=== PATIENT | male | born 1950 | race Caucasian/White ===

== ENCOUNTER 2017-04-30 12:47 | Emergency (ER) | payer OTHER ==
[~2017-04-30] VITALS: Ht 177.8 cm; Wt 97.1 kg
--- NOTE | 2017-04-30 12:58 | ED MVC/FALL/TRAUMA COMPLAINT ---
History of Present Illness General Chief Complaint: Fall Stated Complaint: FELL OFF 10 FT LATTER HIT HEAD -LOC BACK PAIN Vital Signs & Intake/Output Vital Signs & Intake/Output Vital Signs Date Time Temp Pulse Resp B/P B/P Pulse O2 O2 Flow FiO2 Mean Ox Delivery Rate 04/30 1252 97.7 69 20 175/84 99 Room Air Allergies Coded Allergies: No Known Allergies (04/30/17) Triage Note: PT TO ED S/P FALL OFF 10 FOOT LADDER. FELL ONTO HIS BUTTOCKS, "MY HEAD WHIPPED BACK". THINKS HE HIT HIS HEAD ON "A ROOT". DENIES LOC. Past History Travel History Traveled to [place] past 21 day No Medical History Cardiovascular: hypertension Psychosocial History Who do you live with Spouse Services at Home None What is your primary language Togolese Tobacco Use: Never used ETOH Use: denies use Illicit Drug Use: denies illicit drug use Departure Departure Condition: Stable Referrals: BALBIR URBAN,WISAM Phillip (PCP/Family) Departure Forms: Customer Survey General Discharge Information
--- NOTE | 2017-04-30 13:05 | ED MVC/FALL/TRAUMA COMPLAINT ---
History of Present Illness General Chief Complaint: Fall Stated Complaint: FELL OFF 10 FT LATTER HIT HEAD -LOC BACK PAIN Source: patient Exam Limitations: no limitations Vital Signs & Intake/Output Vital Signs & Intake/Output Vital Signs Date Time Temp Pulse Resp B/P B/P Pulse O2 O2 Flow FiO2 Mean Ox Delivery Rate 04/30 1420 71 18 149/75 98 Room Air 04/30 1325 99 Room Air 04/30 1252 97.7 69 20 175/84 99 Room Air Allergies Coded Allergies: No Known Allergies (04/30/17) Reconcile Medications Cyclobenzaprine HCl 10 MG TABLET 1 TAB PO QPM PRN MUSCLE RELAXOR Meloxicam 15 MG TABLET 1 TAB PO DAILY PRN PAIN Oxycodone HCl/Acetaminophen (Percocet 5-325 MG Tablet) 5 MG-325 MG TABLET 1-2 TAB PO Q4-6 PRN PAIN Triage Note: PT TO ED S/P FALL OFF 10 FOOT LADDER. FELL ONTO HIS BUTTOCKS, "MY HEAD WHIPPED BACK". THINKS HE HIT HIS HEAD ON "A ROOT". DENIES LOC. Triage Nurses Notes Reviewed? yes Onset: Abrupt Duration: constant Timing: single episode today Severity: severe Severity Numbers: 10 HPI: Patient is a 66-year-old male who presents emergency room and which 30 minutes prior to arrival patient was on a ladder approximately 10 feet in the air repairing a gazebo roof were subsequently he fell off the ladder striking the right buttock region to the ground then falling backwards on his back and striking the back of his head resulting in a laceration and bleeding was controlled prior to arrival. No loss of consciousness had occurred. Patient states that he is complaining of headache and entire spinous pain. Denies any extremity paresthesias or weakness bowel or bladder incontinence or saddle paresthesia. Patient has been acting at baseline which the is present who witnessed the event No alcohol ingestion today No medications given prior to arrival. Denies any chest pain shortness of breath abdominal pain vomiting blurred vision or extremity pain Past History Travel History Traveled to [place] past 21 day No Medical History Any Pertinent Medical History? see below for history Cardiovascular: hypertension Surgical History Surgical History: non-contributory Psychosocial History Who do you live with Spouse Services at Home None What is your primary language Bulgarian Tobacco Use: Never used ETOH Use: denies use Illicit Drug Use: denies illicit drug use Family History Hx Contributory? No Review of Systems Review of Systems Constitutional: Reports: no symptoms. Eyes: Reports: no symptoms. Ears, Nose, Throat, Mouth: Reports: no symptoms. Respiratory: Reports: no symptoms. Cardiovascular: Reports: no symptoms. Gastrointestinal/Abdominal: Reports: no symptoms. Genitourinary: Reports: no symptoms. Musculoskeletal: Reports: see HPI, back pain. Skin: Reports: no symptoms. Neurological/Psychological: Reports: see HPI, headache. All Other Systems: Reviewed and Negative Physical Exam Physical Exam General Appearance: mild distress Head: evidence of injury Extremities: normal range of motion Comments: HEENT: Normal EENT exam, extraocular motion intact, no nystagmus. Pupils equally round and reactive to light and accommodation. Nose is atraumatic. External auditory canal and Tympanic membranes clear. Pharynx normal. No swelling or edema. Neck: Generalized point tenderness noted, decreased active range of motion noted Back: Generalized point tenderness noted, decreased active range of motion noted Pelvic: Noted gluteal point tenderness to the right side Cardiovascular: Regular rate and rhythms no murmurs rubs or gallops, normal JVP Respiratory: Chest nontender. No respiratory distress.breath sounds clear to auscultation bilaterally Abdomen: Soft, nontender nondistended, no appreciable organomegaly. Normal bowel sounds. No ascites Extremity: No edema, no calf tenderness to palpation, normal and equal pulses. Bilateral upper extremity and lower extremity myotomes dermatomes DTRs intact Neuro: Alert oriented x3, motor sensory normal, cranial nerves II through XII grossly intact. Skin: No appreciable rash on exposed skin, skin is warm and dry. Psych: Mood and affect is normal, memory and judgment is normal. Diagram Head: 1) 1 CM MIDLY GAPING LACERATION NO ACTIVE BLEEDING Core Measures ACS in differential dx? No Severe Sepsis Present: No Septic Shock Present: No Progress Differential Diagnosis: abd injury, C/T/L spine injury, ext injury, ICH, pelvis injury, pnemothorax, spinal cord injury Plan of Care: Orders Procedure Date/time Status CT THOR SPINE WO IV CONTRAST 04/[address] PELVIS WO IV CONTRAST 04/[address] LUMB SPINE WO IV CONTRAST 04/[address] HEAD WO IV CONTRAST 04/[address] CERV SPINE WO IV CONTRAST 04/30 1306 Active Patient currently is standing as most comfortable position HOWEVER IS in mild distress. Patient will be lo scanned. PATIENT HAS NO NEUROVASCULAR DEFICIT ON EXAM CERVICAL COLLAR WAS PLACED PT TOLERATED STAPLE PLACEMENT TETANUS WAS UPDATED. PT WAS GIVEN MORPHINE AND HAD RELIEF OF PAIN I reviewed CT scan images with patient and family for concerns of an L1 compression fracture Cervical collar was removed after cervical spine image was unremarkable discussed disposition and plan with dr cheney Patient was strongly advised to follow up with orthopedic doctor. Patient had normal steady gait on discharge. Upon discharge patient looks well no apparent distress and will comply with discharge instructions and had no questions. (RIKKI VILLASENOR,ENID) Diagnostic Imaging: Viewed by Me: CT Scan. Radiology Impression: acute abnormality, fracture Comments: PATIENT: ROLAND CHAVEZ PRESENT AGE: 66 PATIENT ACCOUNT NO: [id number] : 51 LOCATION: [facility] ORDERING PHYSICIAN: ENID VILLASENOR SERVICE DATE: 04/30/17 EXAM TYPE: CAT - CT PELVIS WO IV CONTRAST EXAMINATION: CT PELVIS WITHOUT CONTRAST CLINICAL INFORMATION: Fall off 10 foot gazebo. Left ischial tuberosity and pelvic pain COMPARISON: None TECHNIQUE: Helical scanning was performed with submillimeter collimation through the pelvis. Sagittal and coronal multiplanar 2-D reconstructions were obtained. DLP: 1016 mGy-cm FINDINGS: PELVIS: The bladder is moderately distended. No evidence of pelvic mass or lymphadenopathy. No free fluid or thickened bowel loops are seen. The appendix is normal. A small fat-containing umbilical hernia is noted. OSSEOUS STRUCTURES: The sacroiliac joints are fused. No fracture or dislocation is seen. There are mild degenerative changes at the bilateral hips. IMPRESSION: No acute pelvic fracture is seen. The pelvic ring is maintained. No free fluid. Fused bilateral sacroiliac joints, correlate with history of spondyloarthropathy. Mild degenerative changes are seen in the bilateral hips with osteophyte formation. DICTATED BY: TORRES CASEY MD DATE/TIME DICTATED:04/30/17 PATIENT: ROLAND CHAVEZ PRESENT AGE: 66 PATIENT ACCOUNT NO: [id number] : 51 LOCATION: ER ORDERING PHYSICIAN: ENID VILLASENOR SERVICE DATE: 04/30/17 EXAM TYPE: CAT - CT LUMB SPINE WO IV CONTRAST; CT THOR SPINE WO IV CONTRAST EXAMINATION: THORACIC AND LUMBAR SPINE CT WITHOUT CONTRAST CLINICAL INFORMATION: 66-year-old man with fall from 10 foot gazebo. Pain. COMPARISON: None TECHNIQUE: Helical CT images were obtained through the thoracic and lumbar spine. Axial reconstructions were reviewed along with sagittal and coronal MPRs. DLP: 1381 mGy-cm FINDINGS: Thoracic spine: There is no convincing evidence of acute fracture. Vertebral bodies remain normal in height. Alignment is anatomic. Mild degenerative endplate remodeling is seen at multiple levels and is perhaps most conspicuous at T7-T8 and T8-T9. Small degenerative anterior marginal osteophytes are seen in the upper thoracic spine. There is mild loss of normal intervertebral disc height. There is mild to moderate narrowing of the neural foramina from T7-T8 through T10-T11. At T11-T12, there is bulky mineralization of the ligamentum flavum which in conjunction with facet arthrosis and a disc bulge leads to at least moderate canal stenosis. Lumbar spine: There is a superior endplate compression deformity which leads to about 10% central loss of height. Buckling of the anterior cortex and subtle lucency paralleling the superior endplate suggest that this fracture is acute. Remaining vertebral bodies are normal in height. Alignment is anatomic. Intervertebral disc heights are relatively well-preserved. Facet arthrosis contributes to mild to moderate narrowing of the neural foramina at L4-L5 and L5-S1. IMPRESSION: 1. Probable mild acute superior endplate compression fracture of L1 with about 10% central loss of height. 2. Moderate multilevel thoracic spondylosis. Degenerative changes at T11-T12 lead to at least moderate canal stenosis. DICTATED BY: TYSON MUSTAFA MD DATE/TIME DICTATED:04/30/171356 ALUMINUM POURER:DARIELA PATIENT: ORLAND CHAVEZ PRESENT AGE: 66 PATIENT ACCOUNT NO: [id number] : 51 LOCATION: [facility] ORDERING PHYSICIAN: ENID VILLASENOR SERVICE DATE: 04/30/176802 EXAM TYPE: CAT - CT PELVIS WO IV CONTRAST EXAMINATION: CT PELVIS WITHOUT CONTRAST CLINICAL INFORMATION: Fall off 10 foot gazebo. Left ischial tuberosity and pelvic pain COMPARISON: None TECHNIQUE: Helical scanning was performed with submillimeter collimation through the pelvis. Sagittal and coronal multiplanar 2-D reconstructions were obtained. DLP: 1016 mGy-cm FINDINGS: PELVIS: The bladder is moderately distended. No evidence of pelvic mass or lymphadenopathy. No free fluid or thickened bowel loops are seen. The appendix is normal. A small fat-containing umbilical hernia is noted. OSSEOUS STRUCTURES: The sacroiliac joints are fused. No fracture or dislocation is seen. There are mild degenerative changes at the bilateral hips. IMPRESSION: No acute pelvic fracture is seen. The pelvic ring is maintained. No free fluid. Fused bilateral sacroiliac joints, correlate with history of spondyloarthropathy. Mild degenerative changes are seen in the bilateral hips with osteophyte formation. DICTATED BY: TORRES CASEY MD DATE/TIME DICTATED:04/30/171355 ALUMINUM POURER:MONTALVO DATE/TIME TRANSCRIBED:04/30/171355 PATIENT: ROLAND CHAVEZ PRESENT AGE: 66 PATIENT ACCOUNT NO: [id number] : 51 LOCATION: [facility] ORDERING PHYSICIAN: ENID VILLASENOR SERVICE DATE: 04/30/17 EXAM TYPE: CAT - CT CERV SPINE WO IV CONTRAST; CT HEAD WO IV CONTRAST EXAMINATION: CT HEAD WITHOUT CONTRAST CT CERVICAL SPINE WITHOUT CONTRAST CLINICAL INFORMATION: Fall off 10 foot gazebo. COMPARISON: None. TECHNIQUE: Imaging was performed from the skull base to vertex without intravenous administration of contrast. In addition, helical noncontrast CT imaging was acquired through the cervical spine and source images were reviewed along with axial reconstructions and sagittal and coronal MPRs. Total exam dose-length product 1014 mGy-cm FINDINGS: HEAD: No intracranial mass, hemorrhage, or midline shift is visualized. The ventricles and sulci are age-appropriate. No extra-axial collections are identified. The paranasal sinuses and mastoid air cells are well aerated. CERVICAL SPINE: There is no evidence of acute cervical spine fracture. Vertebral bodies remain normal in height and alignment is anatomic. Disc space height is maintained. Mild endplate osteophytes are seen in the mid to lower cervical spine. No pre- or paravertebral soft tissue abnormality is identified. Limited assessment of the lung apices is unremarkable. IMPRESSION: 1. No acute intracranial pathology. 2. No CT evidence of acute cervical spine fracture or traumatic subluxation DICTATED BY: TORRES CASEY MD DATE/TIME DICTATED:04/30/171348 ALUMINUM POURER:MONTALVO DATE/TIME TRANSCRIBED:04/30/171348 CONFIDENTIAL, DO NOT COPY WITHOUT APPROPRIATE AUTHORIZATION. <Electronically signed in Other Vendor System> SIGNED BY: TORRES CASEY MD 04/30/178 Departure Departure Disposition: HOME OR SELF CARE Condition: Stable Clinical Impression Primary Impression: Compression fracture of L1 lumbar vertebra Secondary Impressions: Cervical strain, Contusion, Fall, Scalp laceration Referrals: ASHLEY URBAN,NEHEMIAS MCGREGOR MD,WISAM Phillip (PCP/Family) Additional Instructions: As discussed begin icing the area directly 20 minutes every 2 hours. Begin the prescription meloxicam for pain and inflammation begin the prescription of Percocet for breakthrough pain and a prescription of cyclobenzaprine for muscle relaxation. If symptoms worsen return to emergency room. Do not lift heavy objects or exert yourself as this may worsen your symptoms. On Tuesday follow-up with orthopedic Nehemias Farley MD for further evaluation treatment. Prescriptions are waiting at [place] [facility] Begin to apply bacitracin to the area once a day of the scalp wound for the following 4 days. If you note signs of infection redness, pain, swelling, discharge return to emergency room. Return to emergency room in 7 days for staple removal Departure Forms: Customer Survey General Discharge Information Prescriptions: Current Visit Scripts Oxycodone HCl/Acetaminophen (Percocet 5-325 MG Tablet) 1-2 TAB PO Q4-6 PRN PAIN #20 TAB Cyclobenzaprine HCl 1 TAB PO QPM PRN MUSCLE RELAXOR #10 TAB Meloxicam 1 TAB PO DAILY PRN PAIN #15 TAB Procedures Laceration/Wound Repair Laceration/Wound Repair: Wound Location: head Wound's Depth, Shape: linear, superficial Wound Length (cm): 1 Wound Explored: clean, no foreign body removed, irrigated extensively Irrigated w/ Saline (ccs): 300 Betadine Prep? Yes Suture Size/Type: joe Number of Sutures: 2 Progress: MARGINS WERE REVISED WITH STAPLE PLACEMENT BACITRACIN WAS APPLIED
--- NOTE | 2017-04-30 13:58 | CT SCAN REPORT ---
EXAMINATION: CT HEAD WITHOUT CONTRAST CT CERVICAL SPINE WITHOUT CONTRAST CLINICAL INFORMATION: Fall off 10 foot gazebo. COMPARISON: None. TECHNIQUE: Imaging was performed from the skull base to vertex without intravenous administration of contrast. In addition, helical noncontrast CT imaging was acquired through the cervical spine and source images were reviewed along with axial reconstructions and sagittal and coronal MPRs. Total exam dose-length product 1014 mGy-cm FINDINGS: HEAD: No intracranial mass, hemorrhage, or midline shift is visualized. The ventricles and sulci are age-appropriate. No extra-axial collections are identified. The paranasal sinuses and mastoid air cells are well aerated. CERVICAL SPINE: There is no evidence of acute cervical spine fracture. Vertebral bodies remain normal in height and alignment is anatomic. Disc space height is maintained. Mild endplate osteophytes are seen in the mid to lower cervical spine. No pre- or paravertebral soft tissue abnormality is identified. Limited assessment of the lung apices is unremarkable. IMPRESSION: 1. No acute intracranial pathology. 2. No CT evidence of acute cervical spine fracture or traumatic subluxation
--- NOTE | 2017-04-30 14:04 | CT SCAN REPORT ---
EXAMINATION: CT PELVIS WITHOUT CONTRAST CLINICAL INFORMATION: Fall off 10 foot gazebo. Left ischial tuberosity and pelvic pain COMPARISON: None TECHNIQUE: Helical scanning was performed with submillimeter collimation through the pelvis. Sagittal and coronal multiplanar 2-D reconstructions were obtained. DLP: 1016 mGy-cm FINDINGS: PELVIS: The bladder is moderately distended. No evidence of pelvic mass or lymphadenopathy. No free fluid or thickened bowel loops are seen. The appendix is normal. A small fat-containing umbilical hernia is noted. OSSEOUS STRUCTURES: The sacroiliac joints are fused. No fracture or dislocation is seen. There are mild degenerative changes at the bilateral hips. IMPRESSION: No acute pelvic fracture is seen. The pelvic ring is maintained. No free fluid. Fused bilateral sacroiliac joints, correlate with history of spondyloarthropathy. Mild degenerative changes are seen in the bilateral hips with osteophyte formation.
--- NOTE | 2017-04-30 14:11 | CT SCAN REPORT ---
EXAMINATION: THORACIC AND LUMBAR SPINE CT WITHOUT CONTRAST CLINICAL INFORMATION: 66-year-old man with fall from 10 foot gazebo. Pain. COMPARISON: None TECHNIQUE: Helical CT images were obtained through the thoracic and lumbar spine. Axial reconstructions were reviewed along with sagittal and coronal MPRs. DLP: 1381 mGy-cm FINDINGS: Thoracic spine: There is no convincing evidence of acute fracture. Vertebral bodies remain normal in height. Alignment is anatomic. Mild degenerative endplate remodeling is seen at multiple levels and is perhaps most conspicuous at T7-T8 and T8-T9. Small degenerative anterior marginal osteophytes are seen in the upper thoracic spine. There is mild loss of normal intervertebral disc height. There is mild to moderate narrowing of the neural foramina from T7-T8 through T10-T11. At T11-T12, there is bulky mineralization of the ligamentum flavum which in conjunction with facet arthrosis and a disc bulge leads to at least moderate canal stenosis. Lumbar spine: There is a superior endplate compression deformity which leads to about 10% central loss of height. Buckling of the anterior cortex and subtle lucency paralleling the superior endplate suggest that this fracture is acute. Remaining vertebral bodies are normal in height. Alignment is anatomic. Intervertebral disc heights are relatively well-preserved. Facet arthrosis contributes to mild to moderate narrowing of the neural foramina at L4-L5 and L5-S1. IMPRESSION: 1. Probable mild acute superior endplate compression fracture of L1 with about 10% central loss of height. 2. Moderate multilevel thoracic spondylosis. Degenerative changes at T11-T12 lead to at least moderate canal stenosis.
[2017-04-30 14:20] VITALS: BP 149/75
[2017-04-30] MEDS ORDERED: CYCLOBENZAPRINE10 M1 PO (14:36)
[2017-04-30] MEDS ORDERED: MELOXICAM15 M1 PO (14:36)
[2017-04-30] MEDS ORDERED: PERCOCET 5-3251 EACH PO (14:36)
== END 2017-04-30 15:08 ==
LOC: ERH 12:47
DX: S32.010A Wedge compression fracture of first lumbar vertebra, initial encounter for closed fracture (principal); S01.01XA Laceration without foreign body of scalp, initial encounter; S16.1XXA Strain of muscle, fascia and tendon at neck level, initial encounter; T14.8 Other injury of unspecified body region; W11.XXXA Fall on and from ladder, initial encounter; Y93.89 Activity, other specified; Y92.9 Unspecified place or not applicable
CPT/HCPCS: 90471; 90714; 96372; J3101